=== PATIENT | male | born 1945 ===

== ENCOUNTER 2018-06-03 05:22 | Observation (INO) | payer OTHER ==
[2018-06-03] MEDS ORDERED: GABAPENTIN 300 MG CAP PO ONE (05:39)
[2018-06-03] MEDS ORDERED: ACETAMINOPHEN 500 MG TAB PO ONE (05:39)
[2018-06-03] MEDS ORDERED: ceFAZolin 2 GM/DEXTROSE 100 ML IV ONE (05:39)
[2018-06-03] MEDS ORDERED: LIDOCAINE 1% 2 ML INJ ID PRN (05:42)
[2018-06-03] MEDS ORDERED: LR 1,000 ML IV ONE (05:42)
[2018-06-03] MEDS ORDERED: CHLORHEXIDINE GLUC HIBICLENS 118 ML BTL TP ONE (06:20)
[2018-06-03] MEDS ORDERED: BUPIVACAINE 0.25% 30 ML SDV ONE (06:20)
[2018-06-03] MEDS ORDERED: DEPO METHYLPREDNISOLONE 40 MG/ML SDV ONE (06:21)
[2018-06-03] MEDS ORDERED: BACITRACIN 50,000 UNITS/10 ML SYR IRR ONE (06:21)
[2018-06-03] MEDS ORDERED: EPINEPHrine 1 MG/ML INJ ONE (06:21)
[2018-06-03] MEDS ORDERED: MIDAZOLAM 2 MG/2 ML VIAL IVP ONE (06:53)
--- NOTE | 2018-06-03 06:53 | PDANEPAE ---
ANE History of Present Illness 72 yo for l1/l2 lami ANE Past Medical History - Cardiovascular History Hx Hypertension: No Hx Arrhythmias: No Hx Chest Pain: No Hx Coronary Artery / Peripheral Vascular Disease: No Hx CHF / Valvular Disease: No Hx Palpitations: No - Pulmonary History Hx COPD: No Hx Asthma/Reactive Airway Disease: No Hx Recent Upper Respiratory Infection: No Hx Oxygen in Use at Home: No Hx Sleep Apnea: No Sleep Apnea Screening Result - Last Documented: Negative - Neurologic History Hx Cerebrovascular Accident: No Hx Seizures: No Hx Dementia: No - Endocrine History Hx Diabetes: No - Renal History Hx Renal Disorders: No - Liver History Hx Hepatic Disorders: No - Neurological & Psychiatric Hx Hx Neurological and Psychiatric Disorders: No - Cancer History Hx Cancer: Yes Cancer History Comment: SKIN - Congenital Disorder History Hx Congenital Disorders: No - GI History Hx Gastrointestinal Disorders: No - Other Health History Other Health History: LT LEG NUMBNESS AND FOOT DROP. ONE MISSING TOOTH - Chronic Pain History Chronic Pain: Yes (ALL OF LT SIDE TOP OF HIP/THIGH) - Surgical History Prior Surgeries: LUMBAR LAMINECTOMY 2014. APPY. MARK MACULAR HOLE. MARK CATARACT. PENILE IMPLANT. SEPTOPLAST. LT BIG TOE ANE Review of Systems Review of Systems: - Exercise capacity METS (RN): 4 METS ANE Patient History - Allergies Allergies/Adverse Reactions: No Known Allergies Allergy (Unverified 05/21/18 10:00) - Home Medications Home medications: home medication list seen and reviewed Home Medications: oxyCODONE IR [Oxycodone Ir (*)] 10 mg PO HS 05/21/18 [Last Taken 06/02/18 22:00] Aspirin PRN 05/26/18 [Last Taken 05/27/18] Herbals/Supplements -Info Only DAILY 05/26/18 [Last Taken 05/27/18] - NPO status NPO Status: no food or drink >8 hours NPO Since - Liquids (Date): 06/02/18 NPO Since - Liquids (Time): 22:30 NPO Since - Solids (Date): 06/02/18 NPO Since - Solids (Time): 19:00 - Anes Hx Anes Hx: no prior problems - Smoking Hx Smoking Status: Never smoked - Family Anes Hx Family Hx Anesthesia Complications: NEG ANE Labs/Vital Signs - Vital Signs Blood Pressure: 120/86 Heart Rate: 65 Respiratory Rate: 18 O2 Sat (%): 94 Height: 5 ft 8.5 in Weight: 88.451 kg ANE Physical Exam - Airway Neck exam: FROM Mallampati Score: Class 2 Mouth exam: normal dental/mouth exam - Pulmonary Pulmonary: no respiratory distress - Cardiovascular Cardiovascular: regular rate and rhythym - ASA Status ASA Status: I ANE Anesthesia Plan Anesthesia Plan: general endotracheal anesthesia
--- NOTE | 2018-06-03 07:07 | PDHPUP ---
History & Physical Update H&P update statement: This history and physical update is based on an assessment of the patient which was completed after admission or registration (within 24 hours), but prior to the surgery/procedure. H&P update: H&P reviewed & patient examined, no change in patient's condition since H&P completed
[2018-06-03] MEDS ORDERED: REMIFENTANIL HCL 2 MG VIAL ONE (07:11)
[2018-06-03] MEDS ORDERED: fentaNYL 100 MCG/2 ML INJ ONE ×2 (07:11→09:26)
[2018-06-03] MEDS ORDERED: PROPOFOL/EMULSION 500 MG/50 ML BOTTLE IV ONE ×2 (07:11→09:02)
[2018-06-03] MEDS ORDERED: ROCURONIUM 50 MG/5 ML VIAL ONE (07:14)
[2018-06-03] MEDS ORDERED: DEXAMETHASONE 4 MG/ML VIAL ONE ×2 (07:15)
[2018-06-03] MEDS ORDERED: ONDANSETRON DISINTEGRATING 4 MG TAB PO PRN (07:54)
[2018-06-03] MEDS ORDERED: POLYETHYLENE GLYCOL 3350 17 GM PKT PO PRN (07:54)
[2018-06-03] MEDS ORDERED: METHOCARBAMOL 750 MG TAB PO PRN (07:54)
[2018-06-03] MEDS ORDERED: MAGNESIUM HYDROXIDE 30 ML UDCUP PO PRN (07:54)
[2018-06-03] MEDS ORDERED: BISACODYL 10 MG SUPP PR PRN (07:54)
[2018-06-03] MEDS ORDERED: ONDANSETRON 4 MG/2 ML VIAL IVP PRN ×2 (07:54→09:54)
[2018-06-03] MEDS ORDERED: oxyCODONE IR 5 MG TAB PO PRN (07:54)
[2018-06-03] MEDS ORDERED: diphenhydrAMINE 25 MG CAP PO PRN (07:54)
[2018-06-03] MEDS ORDERED: LACTULOSE 20 GM/30 ML UDCUP PO PRN (07:54)
[2018-06-03] MEDS ORDERED: NS 1,000 ML IV SCH (08:00)
[2018-06-03] MEDS ORDERED: ONDANSETRON 4 MG/2 ML VIAL ONE (08:31)
[2018-06-03] MEDS ORDERED: HYDROmorphONE/DILAUDID 2 MG/ML INJ IVP PRN (09:54)
[2018-06-03] MEDS ORDERED: fentaNYL 100 MCG/2 ML INJ IVP PRN (09:54)
[2018-06-03] MEDS ORDERED: NALOXONE HCL 0.4 MG/ML INJ IVP PRN (09:54)
--- NOTE | 2018-06-03 10:09 | POSTOPPROG ---
Post Op Note Date of Operation: 06/03/18 Surgeon: Husam Acuna Manager Administrative: Shantel Ware NP Anesthesiologist: Dr Young Anesthesia: GET(General Endotracheal) Pre-op Diagnosis: Lumbar Stenosis Procedure: L1-2 laminectomy/decompression Inf/Abcess present in the surg proc area at time of surgery?: No Depth: Deep Incisional (Fascial) EBL: 50-100 Total fluids administered: see anesthesia Complications: none Date of Surgery: 06/03/18 Post Op Day: 0 Assessment/Plan: Assessment: 72 yr old M s/p L1-2 laminectomy for left hip/quad pain Plan: -Admit Med surg for obs -PT/OT -Pain management -Patient may dc later today if doing well, please call if this is the case. Otherwise, likely dc home in am -Please call neurosurgery with questions/concerns Subjective: waking up in PACU Objective: Waking up in pacu YOUNG x4 5/5 BUE, BLE sensation intact to light touch BLE Dressing CDI Appropriate Neuro Check Frequency Ordered: Yes
--- NOTE | 2018-06-03 10:57 | GOP ---
DATE OF OPERATION: 06/03/2018 SURGEON: Amy Acuna MD NEUROSURGEON: Amy Acuna MD. RADIOLOGICAL ENGINEER: Shantel Ware NP. 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 POSTOPERATIVE DIAGNOSIS: Large disk herniation at L1-2 bilaterally with a severe left L2 radiculopat hy. PROCEDURE PERFORMED: Bilateral laminectomies of L1-2 with decompression of bilateral thecal sac at L 1-2, minimal medial facetectomy with a left L1-2 microdiskectomy (61962), microscope. FINDINGS: ESTIMATED BLOOD LOSS: 75 cc. INDICATIONS: This patient is a 72-year-old gentleman with terrible left leg pain. An MRI demonstrat ed a huge disk herniation at L1-2 with compression of the thecal sac. His conus terminated above the level of the disk herniation, but there was severe stenosis for the thecal sac and compression of th e left L2 nerve root and I suggested surgery. The risks of CSF leak, nerve injury, recurrent disk he rniation were discussed. He understood these risks. He did want to proceed. He had a prior spine s urgery in the lower lumbar spine and that was unrelated to the current approach. He did want to proc eed. DESCRIPTION OF PROCEDURE: Patient was taken to the operating room, placed in supine position. Gener al anesthesia was begun. He was flipped prone onto the James frame. Care was taken to pad all poin ts of contact. His back was sterilely prepped and draped in usual fashion. A localizing x-ray was t aken. We made a midline incision that was about 2 cm in length. The subcutaneous tissue was dissect ed using Bovie cautery down to the fascia, and a subperiosteal dissection was made down the L1-2 lami na. Self-retaining retractor was placed. A localizing x-ray was taken. We removed the L1 spinous p rocess and performed bilateral laminectomies at L1 under the scope. We opened ligamentum flavum and decompressed the thecal sac. There was some irritability on the left-hand side, and we decompressed the traversing L2 nerve root adjacent to the L2 pedicle and got a great decompression. There was a s ignificant indentation and mass effect on the L2 root, and we could not really move it. We took time working adjacent to the L2 pedicle just below the L1-2 disk herniation itself, coagulating some of t he epidural veins. It took considerable time to get access to the protrusion. The L2 nerve root was stuck in place by the large disk herniation underneath it. We went in lateral to the disk herniatio n, cut the lateral inferior anulus of L1-2 disk and used a black hook to tease out some small fragmen ts of disk. We then followed this with a ball-tip probe and teased out some very large free fragment s of disk that were located at this level, and the more disk that we removed, the more mobile the L2 root became. We eventually were able to sweep all the way up underneath the L2 root and even contral aterally across to the other side of the spinal canal and got a huge amount of disk. We then incised the lower anulus of the L1-2 disk and used a pituitary to remove some very large intradiscal fragmen ts. These were not really attached anything. They were easily removed. We then irrigated the disk with large amounts of antibiotic saline and removed some additional free fragments that irrigated out the disk space itself. The thecal sac was now completely relaxed. We took care to inspect the cont ralateral side, and there was no compression on that side. We had excellent decompression of the con tralateral L2 root, and we even took the ball-tip probe and retracted medially to ensure there was no thing large sitting underneath the contralateral side. It looked free and clear. We irrigated with antibiotic saline solution, placed a little Depo-Medrol over the L2 root and then closed the incision in multiple layers using Vicryl sutures. A running PDS was placed in the skin itself. The patient was reversed from anesthesia, extubated, and transferred to recovery room in stable condition. There were no complications. COMPLICATIONS: None. /[id number]/MODL
[2018-06-03] MEDS: SENNOSIDES/DOCUSATE SODIUM TAB PO SCH ×2 (11:32→21:39)
[2018-06-03] MEDS: FAMOTIDINE 20 MG TAB PO SCH ×2 (11:32→21:40)
[2018-06-03] MEDS: ACETAMINOPHEN 500 MG TAB PO SCH ×2 (15:13→21:39)
[2018-06-03] MEDS: ceFAZolin 2 GM/DEXTROSE 100 ML IV SCH ×2 (15:14→21:36)
[2018-06-03] MEDS: BACITRACIN OPHTHALMIC OINTMENT EACHEYE SCH ×2 (15:14→21:40)
[2018-06-04] MEDS: ACETAMINOPHEN 500 MG TAB PO SCH (04:59)
[2018-06-04 05:18] LABS: PLATELET COUNT 248 10^3/uL (150-400)
[2018-06-04 07:33] VITALS: BP 103/65
--- NOTE | 2018-06-04 07:44 | NEUSURGPN ---
Date of Surgery: 06/03/18 Post Op Day: 1 Assessment/Plan: Assessment: 72 yr old M s/p L1-2 laminectomy for left hip/quad pain POD#1 Plan: -PT/OT -Pain management-currently controlled, expected incisional pain. Improvement in left hip pain -Patient had OU pain post op-appreciated Opth consult who recommended bacitracin opth ointment TID for corneal abrasions. Patient reports improvement in OU pain this am -Patient may dc home today -Discussed patient with Dr Acuna -Please call neurosurgery with questions/concerns Subjective: Incisional pain, eyes feel better Objective: AxO x4 MAEx4 5/5 BUE, BLE Sensation intact to light touch BLE Dressing-quarter size area of SA dried drainage, intact Neuro Check Frequency: per routine Urinary Catheter in Place: No - Physician Discussed Patient with : [facility] Physical Exam - Vitals, I&O, Labs I and O 06/03/18 06/04/18 06/05/18 05:59 05:59 05:59 Intake Total 1775 Output Total 400 Balance 1375 Weight 88.451 kg Intake: Oral (ml) 1075 IV Intake (ml) 700 Output: Urine (ml) 300 Urinal 300 Estimated Blood Loss (ml) 100 Other: Intake Quantity Yes Sufficient Number of Voids Toilet 1 Urinal 1 Vital Signs Temp Pulse Resp BP Pulse Ox 37.1 C 60 14 103/65 95 06/04/18 07:29 06/04/18 07:29 06/04/18 07:29 06/04/18 07:29 06/04/18 07:29 Laboratory Results 06/04/18 04:47 06/04/18 04:47 ICD10 Worksheet Patient Problems: Problems Problem Status Onset Lumbar stenosis Acute - ICD10 Problem Qualifiers (1) Lumbar stenosis
[2018-06-04] MEDS: BACITRACIN OPHTHALMIC OINTMENT EACHEYE SCH (07:53)
--- NOTE | 2018-06-04 08:04 | POSTANESTH ---
Post Anesthetic Evaluation Cardiovascular Status: Normal, Stable Respiratory Status: Normal, Stable Level of Consciousness/Mental Status: Can Participate in Eval Pain Control: Adequate, Prn Tx Ordered Nausea/Vomiting Control: Adequate, Prn Tx Ordered Complications Possibly Related to Anesthesia: None Noted, Other, See Comments ( bilateral corneal abrasions, seen by optho. Sx improving)
[2018-06-04] MEDS: FAMOTIDINE 20 MG TAB PO SCH (09:10)
[2018-06-04] MEDS: SENNOSIDES/DOCUSATE SODIUM TAB PO SCH (09:10)
--- NOTE | 2018-06-04 09:42 | ASMTLACE ---
LACE Length of stay for Answers: 2 days current admission Acuity / Level of Answers: No Care: Did the patient have an inpatient admission? Comorbidities - select Answers: Opioid dependence all that apply / Chronic pain # of Emergency department Answers: 0 visits in the last 6 months Score: 6 Date Signed: 06/04/2018 09:41 AM Electronically Signed By:HIMANSHU Dill
--- NOTE | 2018-06-04 09:43 | ASMTCMCOM ---
CM Note CM Note Notes: Pt had planned surgery for lumbar stenosis. Pt resides with . PT rec home. Pt medically stable for d/c, no CM d/c needs identified. Date Signed: 06/04/2018 09:42 AM Electronically Signed By:HIMANSHU Dill
--- NOTE | 2018-06-04 19:14 | GCON ---
DATE OF CONSULTATION: 06/03/2018 REASON FOR CONSULTATION: Patient reports bilateral eye pain following anesthesia and surgery for a laminectomy. PHYSICAL EXAMINATION: GENERAL: Patient is awake, alert, and oriented. EYES: He is having trouble keeping his eyes open. After instillation of 1 drop of proparacaine anesthetic, he reports complete improvement. Fluorescein staining of the cornea and conjunctiva shows punctate epithelial staining c onsistent with exposure keratopathy. His conjunctiva is chemotic. The remainder of his ocular undil ated exam is normal. 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 RECOMMENDATIONS: Advise Bacitracin ophthalmic ointment t.i.d. to both eyes today and continue tomorr ow if still having irritation. If irritation is improved, then stop tomorrow. Call if any continued pain or visual changes after 3 days. /[id number]/MODL
[2018-06-06] MEDS ORDERED: ENOXAPARIN 40 MG/0.4 ML SYR SC SCH (09:00)
== END 2018-06-04 10:45 | disposition home or self-care (01) ==
LOC: F3E 05:22 → EDBD 07:15 → F3N 07:19
PROVIDERS: ADMIT Neurological Surgery; ATTEND Neurological Surgery
DX: M51.16 Intervertebral disc disorders with radiculopathy, lumbar region (principal)
CPT/HCPCS: 63047; 76001; 97161; 97165; G0378; G8978; G8979; G8980; G8987; G8988; G8989; J0171; J0690; J1030; J1100; J2250; J2405; J2704; J3010